=== PATIENT | female | born 1990 | race Two or more races ===

== ENCOUNTER 2020-08-30 21:37 | Emergency (ER) | payer MEDICAID ==
[~2020-08-30] VITALS: Ht 154.9 cm; Wt 72.6 kg
[2020-08-30 23:30] VITALS: BP 112/60
[2020-08-30] MEDS ORDERED: CLINDAMYCIN HCL 150 MG CAP PO ONE (23:30)
[2020-08-30] MEDS ORDERED: cefTRIAXone SOD 1,000 MG VL IM ONE (23:30)
[2020-08-30] MEDS ORDERED: ACETAMINOPHEN 325 MG TAB PO ONE (23:45)
== END 2020-08-31 00:08 | disposition home or self-care (01) ==
LOC: ER 21:39
DX: L03.115 Cellulitis of right lower limb (principal); F12.10 Cannabis abuse, uncomplicated; F15.10 Other stimulant abuse, uncomplicated
CPT/HCPCS: 73610; 81025; 96372; 99283; J0696

== ENCOUNTER 2020-09-11 03:21 | Emergency (ER) | payer MEDICAID ==
[~2020-09-11] VITALS: Ht 157.5 cm; Wt 72.6 kg
[2020-09-11 05:45] LABS: Basophils # (auto) 0 10 ^3/uL (0-0.2); Basophils % (auto) 0.3 % (0.0-2.0); Eosinophils # (auto) 0 10 ^3/uL (0-0.8); Eosinophils % (auto) 0.1 % (0.0-7.0); Hematocrit 32.5 % (36.0-46.0); Hemoglobin 10.8 g/dL (12.2-16.2); Lymphocytes # (auto) 1.2 10 ^3/uL (0.4-5.4); Mean Corpuscular Hemoglobin 28.9 pg (28.0-32.0); Mean Corpuscular Hgb Conc. 33.2 g/dL (32.0-36.0); Mean Corpuscular Volume 87.1 fL (80.0-100.0); Monocytes # (auto) 0.7 10 ^3/uL (0-1.3); Monocytes % (auto) 4.7 % (0.0-12.0); Neutrophils # (auto) 12.9 10 ^3/uL (1.6-8.6); Neutrophils % (auto) 86.9 % (37.0-80.0); Nucleated Red Blood Cells % 0.1 %; Platelet Count (auto) 312 10^3/uL (140-450); Red Blood Cells 3.73 10^6/uL (4.0-5.20); Red Cell Distribution Width 14.3 % (11.8-14.3); White Blood Cell 14.8 10^3/uL (4.4-10.8)
[2020-09-11] MEDS ORDERED: ONDANSETRON ODT 4 MG TAB PO ONE (05:45)
[2020-09-11] MEDS ORDERED: HYDROcodone-ACET 5/325MG TAB PO ONE (05:45)
[2020-09-11 05:55] LABS: Albumin 3.1 g/dL (3.4-5.0); Calcium 8.4 mg/dL (8.5-10.1); Magnesium 2.4 mg/dL (1.6-2.6); Potassium 3.7 mmol/L (3.5-5.1)
[2020-09-11 05:59] LABS: Bilirubin, Total 0.1 mg/dL (0.2-1.0); Total Protein 7.2 g/dL (6.4-8.2)
[2020-09-11] MEDS ORDERED: SODIUM CHLORIDE 0.9% 1,000 ML IV ONE (06:45)
[2020-09-11 09:48] LABS: Urine Bacteria FEW /hpf (None Seen); Urine Blood 1+ /uL (Negative); Urine Mucus FEW (None Seen); Urine Specific Gravity 1.014 (1.001-1.035); Urine WBC 23 /hpf (0 - 5)
[2020-09-11] MEDS ORDERED: MORPHINE SULFATE 4 MG/ML SYR/VIAL IV ONE (10:00)
[2020-09-11] MEDS ORDERED: ONDANSETRON HCL 4 MG/2 ML VIAL IV ONE (10:00)
[2020-09-11 10:01] LABS: Amphetamine Screen, Urine NEGATIVE (NEGATIVE); Barbiturate Scree,Urine NEGATIVE (NEGATIVE); Benzodiazephine Screen, Urine NEGATIVE (NEGATIVE); Cannabinoid Screen, Urine POSITIVE (NEGATIVE); Cocaine Screen, Urine NEGATIVE (NEGATIVE); Opiate Scree,Urine NEGATIVE (NEGATIVE); Phencyclidine Screen, Urine NEGATIVE (NEGATIVE)
[2020-09-11] MEDS ORDERED: cefTRIAXone 1GM/50ML D5W 50 ML IV ONE ×2 (11:00→11:02)
[2020-09-11 11:10] VITALS: BP 108/70
== END 2020-09-11 11:59 | disposition home or self-care (01) ==
LOC: ER 03:21 → EDBD 03:21 → ER 11:59
DX: R55 Syncope and collapse (principal); S82.202A Unspecified fracture of shaft of left tibia, initial encounter for closed fracture; S82.402A Unspecified fracture of shaft of left fibula, initial encounter for closed fracture; F12.10 Cannabis abuse, uncomplicated; F15.10 Other stimulant abuse, uncomplicated; W18.39XA Other fall on same level, initial encounter; Y93.89 Activity, other specified; Y92.89 Other specified places as the place of occurrence of the external cause; Y99.8 Other external cause status
CPT/HCPCS: 29515; 36415; 70450; 73590; 80053; 80307; 81001; 83735; 85025; 93005; 96365; 96375; 99285; J0696; J2270; J2405; J7030; Q0162

== ENCOUNTER 2020-09-18 22:53 | Emergency (ER) | payer MEDICAID ==
[~2020-09-18] VITALS: Ht 165.1 cm; Wt 68.0 kg
[2020-09-18 23:34] VITALS: BP 110/72
== END 2020-09-19 03:07 | disposition left against medical advice (07) ==
LOC: ER 22:53
DX: M79.662 Pain in left lower leg (principal); Z53.21 Procedure and treatment not carried out due to patient leaving prior to being seen by health care provider

== ENCOUNTER 2021-04-25 18:31 | Emergency (ER) | payer MEDICAID ==
[~2021-04-25] VITALS: Ht 154.9 cm; Wt 61.2 kg
[2021-04-25 20:51] LABS: Urine Bacteria MANY /hpf (None Seen); Urine Blood 1+ /uL (Negative); Urine Mucus FEW (None Seen); Urine Specific Gravity 1.025 (1.001-1.035); Urine WBC 118 /hpf (0 - 5)
[2021-04-25 22:17] VITALS: BP 116/65
[2021-04-25] MEDS ORDERED: cefTRIAXone SOD 1,000 MG VL IM ONE (23:00)
== END 2021-04-25 23:21 | disposition home or self-care (01) ==
LOC: ER 18:33
DX: N39.0 Urinary tract infection, site not specified (principal)
CPT/HCPCS: 81001; 81025; 96372; 99283; J0696

== ENCOUNTER 2021-06-24 14:14 | Emergency (ER) | payer MEDICAID ==
[~2021-06-24] VITALS: Ht 154.9 cm; Wt 61.2 kg
[2021-06-24] MEDS ORDERED: ACET-1080 PO (17:30)
[2021-06-24 17:47] VITALS: BP 112/71
== END 2021-06-24 16:43 | disposition home or self-care (01) ==
LOC: ER 14:15
DX: O26.891 Other specified pregnancy related conditions, first trimester (principal); S30.1XXA Contusion of abdominal wall, initial encounter; F12.10 Cannabis abuse, uncomplicated; F15.10 Other stimulant abuse, uncomplicated; Z3A.09 9 weeks gestation of pregnancy
CPT/HCPCS: 76801; 81025

== ENCOUNTER 2023-01-01 09:26 | Emergency (ER) | payer MEDICAID ==
[~2023-01-01] VITALS: Ht 162.6 cm; Wt 75.0 kg
[~2023-01-01 09:26] MED LIST: ACET-1080 PO
[2023-01-01 10:38] LABS: Albumin 3.1 g/dL (3.4-5.0); Calcium 8.2 mg/dL (8.5-10.1); Potassium 3.1 mmol/L (3.5-5.1); Salicylate < 1.7 mg/dL (2.8-20.0)
[2023-01-01 10:39] LABS: Basophils # (auto) 0 10 ^3/uL (0-0.2); Basophils % (auto) 0.3 % (0.0-2.0); Eosinophils # (auto) 0 10 ^3/uL (0-0.8); Eosinophils % (auto) 0.1 % (0.0-7.0); Hematocrit 40.1 % (36.0-46.0); Hemoglobin 13.1 g/dL (12.2-16.2); Lymphocytes # (auto) 2.2 10 ^3/uL (0.4-5.4); Lymphocytes % (auto) 26.8 % (10.0-50.0); Mean Corpuscular Hemoglobin 29.8 pg (28.0-32.0); Mean Corpuscular Hgb Conc. 32.6 g/dL (32.0-36.0); Mean Corpuscular Volume 91.6 fL (80.0-100.0); Monocytes # (auto) 0.5 10 ^3/uL (0-1.3); Monocytes % (auto) 6.2 % (0.0-12.0); Neutrophils # (auto) 5.6 10 ^3/uL (1.6-8.6); Neutrophils % (auto) 66.6 % (37.0-80.0); Red Blood Cells 4.37 10^6/uL (4.0-5.20); Red Cell Distribution Width 14.5 % (11.8-14.3); White Blood Cell 8.4 10^3/uL (4.4-10.8)
[2023-01-01 10:40] LABS: BUN/Creatinine Ratio 6.9 (10.0-20.0); Bilirubin, Total 0.2 mg/dL (0.2-1.0); Total Protein 7.8 g/dL (6.4-8.2)
[2023-01-01 10:57] LABS: Acetaminophen < 2.0 ug/mL (10-30)
[2023-01-01 11:38] VITALS: PULSE 96; RESP 16; O2SAT 99
[2023-01-01 12:02] VITALS: TEMP 98.9
[2023-01-01 15:00] VITALS: BP 122/84; RESP 16; O2SAT 98
[2023-01-01 15:01] VITALS: PULSE 104
[2023-01-01] MEDS ORDERED: SODIUM CHLORIDE 0.9% 1,000 ML IV ONE (15:30)
[2023-01-01] MEDS ORDERED: ONDANSETRON HCL 4 MG/2 ML VIAL IV ONE (15:30)
[2023-01-01] MEDS ORDERED: POTASSIUM CHL 20 Meq TABLET PO ONE (15:30)
== END 2023-01-01 16:21 | disposition home or self-care (01) ==
LOC: EDBD 09:26 → ER 09:26
DX: T40.5X1A Poisoning by cocaine, accidental (unintentional), initial encounter (principal); R11.2 Nausea with vomiting, unspecified; R41.82 Altered mental status, unspecified; F12.10 Cannabis abuse, uncomplicated; F15.10 Other stimulant abuse, uncomplicated; F14.10 Cocaine abuse, uncomplicated; Z79.899 Other long term (current) drug therapy; Y92.9 Unspecified place or not applicable
CPT/HCPCS: 36415; 80053; 80320; 80329; 82962; 85025; 96361; 96374; 99284; J2405; J7030